=== PATIENT | male | born 1970 | race Caucasian/White ===

== ENCOUNTER → 2021-05-23 00:22 | Outpatient (CLI) | payer OTHER, SELFPAY ==
[2021-05-23 21:20] LABS: SARS-CoV-2 RNA PCR Negative
== END ==
PROVIDERS: Visit Provider Internal Medicine Gastroenterology
DX: Z01.812 Encounter for preprocedural laboratory examination (principal); Z20.822 Contact with and (suspected) exposure to COVID-19
CPT/HCPCS: C9803; U0003; U0005

== ENCOUNTER 2021-05-27 01:52 | Day surgery (SDC) | payer OTHER, SELFPAY ==
[2021-05-19 14:31] VITALS: BMI 28.6
--- NOTE | 2021-05-26 13:55 | WPDANESEPPF ---
Anes - Initial Pre Proc Eval Procedure: Operation Date: 05/27/21 08:00 Proposed Procedures p Esophagogastroduodenoscopy & Screening Colonoscopy - Ryan Perez MD Date/Time: 05/26/21 13:55 Surgeon: Ryan Perez MD Pre Op Diagnosis: GERD, Neoplasm Screening Patient Data Age: 50 Gender: M Height: 1.75 m Weight: 88 kg Allergies Allergy/AdvReac Type Severity Reaction Status Date / Time No Known Allergies Allergy Verified 05/27/21 06:43 Home Medications Medication Instructions Recorded Confirmed Type omeprazole 40 mg capsule,delayed 40 mg PO DAILY #90 cap 04/24/21 05/27/21 Rx release rosuvastatin 5 mg tablet 5 mg PO QPM #30 tablet 05/06/21 05/27/21 Rx ibuprofen 600 mg PO Q6H PRN 05/19/21 05/27/21 History Patient hx anesthesia problems: none Family hx anesthesia problems: none PMFSH Past Medical History Medical History (Updated 05/26/21 @ 13:56 by Jerson Lacy MD) GERD (gastroesophageal reflux disease) Hyperlipidemia Overweight (BMI 25.0-29.9) Family History Family History Father Family history of coronary artery disease, Onset Age: 54 Grandparent Family history of malignant neoplasm of esophagus Social History Social History (Updated 04/21/21 @ 15:09 by Shona Stratton) Social History: Smoking status: Never smoker Second hand tobacco smoke exposure: No Alcohol intake: current Drinks per week: 24 Substance use: never Substance use type: does not use Living arrangements: with family Gender identity (if verbalized by the patient): Female Spiritual care concerns: No Anes - Eval Final PreProcedure Day of Procedure 05/26/21 13:55 Patient weight: overweight Heart: regular rate and rhythm Lungs: clear to auscultation and normal air movement Airway: Mallampati scale class II Neurological: alert and oriented Last oral intake: >/= 8 hours ASA classification: II Emergent: no Anesthetic plan: proceed Anesthesia type and monitoring: general GIVS Informed Consent: The patient's anesthetic plan and its attendant risks and benefits were discussed with the patient/family/POA. Questions were solicited and answers provided to the satisfaction of the patient/family/POA.
[2021-05-27 06:44] VITALS: BP 131/86; PULSE 71; RESP 18; TEMP 35.9; O2SAT 100; BMI 27.6
[2021-05-27] MEDS: LACTATED RINGERS 1,000 ML 150 ML IV CONT (06:59)
--- NOTE | 2021-05-27 07:18 | WPDGICN ---
Assessment and Plan Assessment and plan (1) GERD (gastroesophageal reflux disease): Code(s): K21.9 - Gastro-esophageal reflux disease without esophagitis Status: Acute Assessment and Plan: Patient has chronic GE reflux disease controlled with omeprazole 20 mg p.o. daily. Plan is to continue PPI therapy. Anti-reflux measures are encourage. EGD will be performed today to exclude Chang's esophagus. (2) Colon cancer screening: Code(s): Z12.11 - Encounter for screening for malignant neoplasm of colon Status: Acute Assessment and Plan: colon cancer screening to be be performed today because of age 49. Patient appears to be at average risk for colon polyps. (3) Family history of esophageal cancer: Code(s): Z80.0 - Family history of malignant neoplasm of digestive organs Status: Acute Assessment and Plan: Patient has a strong history of esophageal cancer in his grandfather and 2 uncles. Plan is for EGD to assess his history of GE reflux disease also to exclude underlying Chang's esophagus in this patient. GI Consult Note Consult date/time: 05/27/21 07:18 HPI: Alberto Szymanski is a 50 year old male Presents for GI endoscopy. Patient has a long history of acid reflux. He has had heartburn frequently. Two years ago was placed on Prilosec 20 mg p.o. daily. This is alleviated his heartburn. He has done well since that time. Today he presents for screening elective EGD because of chronic GE reflux disease patient reports that his grandfather and several uncles have had esophageal cancer. Additional screening EGD is advised because of this family history. Patient reports never having a colonoscopy. Now that he is age 50 he desires neoplasia screening colonoscopy. Patient reports that his current weight appetite bowel movements are normal. Patient denies any family history of colon polyps or cancer. Review of Systems Review of Systems: All systems reviewed & are unremarkable except as noted in HPI and below PMFSH Past Medical History Medical History (Updated 05/27/21 @ 07:20 by Ryan Perez MD) GERD (gastroesophageal reflux disease) Hyperlipidemia Overweight (BMI 25.0-29.9) Family History Family History Father Family history of coronary artery disease, Onset Age: 54 Grandparent Family history of malignant neoplasm of esophagus Social History Social History (Updated 04/21/21 @ 15:09 by Shona Stratton) Social History: Smoking status: Never smoker Second hand tobacco smoke exposure: No Alcohol intake: current Drinks per week: 24 Substance use: never Substance use type: does not use Living arrangements: with family Gender identity (if verbalized by the patient): Female Spiritual care concerns: No Meds Home Medications and Allergies Home Medications Medication Instructions Recorded Confirmed Type omeprazole 40 mg capsule,delayed 40 mg PO DAILY #90 cap 04/24/21 05/27/21 Rx release rosuvastatin 5 mg tablet 5 mg PO QPM #30 tablet 05/06/21 05/27/21 Rx ibuprofen 600 mg PO Q6H PRN 05/19/21 05/27/21 History Allergies Allergy/AdvReac Type Severity Reaction Status Date / Time No Known Allergies Allergy Verified 05/27/21 06:43 Vital Signs Vital Signs - 24 hr 05/27/21 06:44 Temperature 96.6 F L Pulse Rate 71 Respiratory Rate 18 Blood Pressure 131/86 Pulse Oximetry 100 Exam Narrative: Exam Narrative: Physical exam reveals patient to be alert. Vital signs stable. HEENT exam is unremarkable. Patient is anicteric. Lungs are clear to auscultation and percussion. Heart is without murmur or extra sounds. Abdominal exam bowel sounds are present soft nontender with no organomegaly. Digital external rectal exam is normal.
[2021-05-27 08:25] VITALS: BP 109/76; PULSE 71; RESP 18; O2SAT 97
[2021-05-27 08:35] VITALS: BP 107/72; PULSE 66; RESP 16; O2SAT 97
[2021-05-27 08:45] VITALS: BP 134/87; PULSE 66; RESP 14; O2SAT 98
== END 2021-05-27 09:03 | disposition home or self-care (01) ==
PROVIDERS: PCP Family Medicine; Visit Provider Internal Medicine Gastroenterology
PROC: 0DJ08ZZ Inspection of Upper Intestinal Tract, Via Natural or Artificial Opening Endoscopic (ICD-10-PCS; CPT 43235; principal; 2021-05-27 08:00)
DX: Z12.11 Encounter for screening for malignant neoplasm of colon (principal); K64.8 Other hemorrhoids; K57.30 Diverticulosis of large intestine without perforation or abscess without bleeding; K21.00 Gastro-esophageal reflux disease with esophagitis, without bleeding; E78.5 Hyperlipidemia, unspecified; Z80.0 Family history of malignant neoplasm of digestive organs
CPT/HCPCS: 45378; 43239; 88305; C9803; J2001; J2704; J7120; U0003; U0005

== ENCOUNTER 2022-01-05 11:41 | Outpatient (CLI) | payer OTHER, SELFPAY ==
--- NOTE | ~2022-01-05 | XR_ITS ---
EXAMINATION: XR shoulder RT min 2V INDICATION: Arthropathy and palpable lump TECHNIQUE: Four views of the right shoulder are submitted. COMPARISON: None FINDINGS: Normal alignment. No fracture. Glenohumeral and acromioclavicular joint spaces are normal. No definite radiographic correlate is identified for the reported palpable lump of the shoulder altho [facility] sensitivity of radiographs is low. IMPRESSION: 1. No acute osseous abnormality. No radiographic correlate identified for the reported palpable lump. Consider further evaluation with additional imaging if indicated. Reviewed, dictated and finalized at location [employer] IMPRESSION: 1. No acute osseous abnormality. No radiographic correlate identified for the r eported palpable lump. Consider further evaluation with additional imaging if i ndicated.
== END 2022-01-05 11:42 | disposition home or self-care (01) ==
PROVIDERS: PCP Family Medicine; Visit Provider Family Medicine
DX: M12.9 Arthropathy, unspecified (principal)
CPT/HCPCS: 73030